=== PATIENT | female | born 1985 | race Caucasian/White ===

== ENCOUNTER 2017-08-29 21:06 | Day surgery (SDC) | payer OTHER ==
[2017-08-29 21:35] VITALS: BP 109/71; TEMP 98.8; BMI 31.8
--- NOTE | 2017-08-29 22:24 | PRG ---
DATE OF SERVICE: 08/29/2017 TIME OF EVALUATION: 2150 hours. TIME OF DICTATION: 2200 hours. LOCATION: Labor and Delivery in triage bed B. REASON FOR EVALUATION: Suspected threatened labor at 35 weeks and 2 days. This is a patient of Dr. Interiano. HISTORY OF PRESENT ILLNESS: In brief, this is a 31-year-old 5, para 2 with 2 prio r vaginal each at around 36 weeks. She states that she was seen last week by Dr. Interiano and ecked her cervix and found that she was [address] Interiano had mentioned to her the possibilit y of receiving steroids for lung maturity due to her history of labor at 36 weeks. Cata horan arrives here for irregular contractions and slight spotting. She denies recent trauma or leakage of fluid or cynthia bleeding. She has good movement. She denies any viral illnesses. REVIEW OF SYSTEMS: Complete review of systems was checked and is otherwise negative unless specifie d in the HPI. PAST MEDICAL HISTORY: Otherwise negative. ALLERGIES: None. PAST SURGICAL HISTORY: Significant only for tonsils and adenoids. OB HISTORY: As per HPI. PHYSICAL EXAMINATION: VITAL SIGNS: She is afebrile and normotensive. GENERAL: Clinically, she is in no acute distress. ABDOMEN: Soft and nontender and there are no palpable contractions. Size is consistent with dates. The cervix was checked by me and I found the cervix to be 2 cm dilated, about 50% effaced, -3 stat ion, posterior position. Baby is in a cephalic presentation. The bag of water is intact. There is no evidence of vaginal bleeding or ruptured membranes grossly on exam. NONSTRESS TEST: Nonstress test was ordered due to threatened labor. Nonstress test shows f etal heart tones in the 130s to 140s with moderate variability. There are no decelerations. There are no real contractions on the tocodynamometer. ASSESSMENT: This is a patient with threatened labor who is at 35 weeks and 2 days, with a h istory of deliveries at 36 weeks x2. PLAN: 1. Dr. Interiano aware of the patient's arrival. 2. Plan for Celestone to be given now with a repeat dose tomorrow as an outpatient. 3. We will give the Celestone now and discharge the patient home as there is no current evidence of labor. 4. She will return to labor and delivery tomorrow for her second Celestone injection.
[2017-08-29] MEDS ORDERED: Betamet Acet/Betamet Na Ph 30 MG/5 ML VIAL IM SCH (22:30)
== END 2017-08-29 22:52 | disposition home or self-care (01) ==
LOC: L&D/OP 21:06
PROVIDERS: ATTEND Obstetrics & Gynecology
DX: O47.03 False labor before 37 completed weeks of gestation, third trimester (principal); Z3A.36 36 weeks gestation of pregnancy; Z90.89 Acquired absence of other organs; Z79.899 Other long term (current) drug therapy
CPT/HCPCS: 59025; 96372; J0702

== ENCOUNTER 2017-08-30 19:31 | Day surgery (SDC) | payer OTHER ==
[2017-08-30] MEDS ORDERED: Betamet Acet/Betamet Na Ph 30 MG/5 ML VIAL IM SCH (20:00)
--- NOTE | 2017-08-30 21:37 | PRG ---
DATE OF SERVICE: 08/30/2017 PRIMARY RN SECURITY: Dr. Interiano. CHIEF COMPLAINT: Betamethasone shot in labor. HISTORY OF PRESENT ILLNESS: The patient is a 31-year-old G5, P2 female with a history of 2 deliveries here at 35 weeks and 3 days to get a second dose of betamethasone for threatened labor and delivery. The patient has no complaints today at this time. PHYSICAL EXAMINATION: VITAL SIGNS: Blood pressure is 121/62, heart rate of 80, respiratory rate of 18. GENERAL: She appears to be in no acute distress. heart tracing is performed for threatened labor. Baseline is noted to be in the 130s with moderate long-term variability, positive accelerations, duration is 25 minutes. Tocometer show s some irritability, not felt by the patient. ASSESSMENT AND PLAN: The patient is a 31-year-old G5, P2 female with history of 2 prior del iveries and threatened labor. She was here yesterday and evaluated and noted to be 2 cm dil ated. Decision was made by her primary OB who administered steroids and is here for her second shot s. The patient will be discharged to home once that is completed and we have. Fetus is reassuring by reactive NST. The patient has a followup appointment with Dr. Interiano on Friday.
== END 2017-08-30 20:07 | disposition home or self-care (01) ==
LOC: L&D/OP 19:31
PROVIDERS: ATTEND Obstetrics & Gynecology
DX: O60.03 Preterm labor without delivery, third trimester (principal); Z3A.35 35 weeks gestation of pregnancy
CPT/HCPCS: 59025; 96372; J0702

== ENCOUNTER 2017-09-03 18:02 | Day surgery (SDC) | payer OTHER ==
[2017-09-03 18:47] VITALS: BMI 30.7
[2017-09-03] MEDS ORDERED: Ondansetron HCl/PF 4 MG/2 ML Vial ONE (20:36)
[2017-09-03] MEDS ORDERED: Lactated Ringer's 1,000 ML IV SCH (21:00)
[2017-09-03] MEDS ORDERED: Lactated Ringer's 500 ML IV SCH (21:00)
[2017-09-03] MEDS ORDERED: Ondansetron HCl/PF 4 MG/2 ML Vial SLOW IVP SCH (21:00)
--- NOTE | 2017-09-04 04:20 | PRG ---
DATE OF SERVICE: 09/04/2017 PRIMARY NETWORKING SPECIALIST: Dr. Genaro Interiano CHIEF COMPLAINT: Abdominal pains. HISTORY OF PRESENT ILLNESS: The patient is a 31-year-old G5, P2 female with an intrauterine pregnan cy at 36 weeks and 0 days who is presenting to Labor and Delivery with increasing abdominal pains. The patient has a history of delivery x2, and a 36-week . She has been given anten atal steroids in the event of early delivery with this . The patient was last seen with ce rvical dilation of 2 cm, 50% effacement on 08/29/2017 approximately 6 days prior to this presentatio n. She reports that the pains have gotten closer together and more intense. She denies any leakage of fluid, reports some bloody show. She denies any recent illness, fever, fall, headache, chest pa in, shortness of breath, nausea, vomiting, diarrhea, constipation, any new skin rashes, hip problems , knee problems, urinary urgency. 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 PAST SURGICAL HISTORY: Negative. OBSTETRIC HISTORY: She has had 2 deliveries and 2 spontaneous miscarriages. SOCIAL HISTORY: Denies drug, alcohol or tobacco use. ALLERGIES: No known drug allergies. OB LABS: Blood type is A positive, antibody screen is negative. Hepatitis B surface antigen is neg ative. She is rubella immune, HIV nonreactive, RPR nonreactive. REVIEW OF SYSTEMS: Per HPI. PHYSICAL EXAMINATION: VITAL SIGNS: Blood pressure 108/56, heart rate of 71, respiratory rate 20, satting 96% on room air, temperature 98.3. GENERAL: She appears to be in no acute distress in between contractions. She does appear to have s ome pain with contractions. She is alert and oriented, and cooperative and pleasant to interact wit h. HEENT: Normocephalic, atraumatic. LUNGS: Clear to auscultation bilaterally. HEART: Regular rate and rhythm. ABDOMEN: Soft and gravid in between contractions. EXTREMITIES: Nontender, nonedematous. CERVICAL EXAM: On presentation is 3, 80%, -1 station, 4 hours later, the patient has been checked a nd is unchanged. During her stay, the patient has received 2 mg of Stadol IV hydration. heart tracing performed and for labor, baseline is noted to be in the 1-teens with mod erate long-term variability, positive 15 x 15 accelerations and no decelerations. Contractions that shows an irregular pattern with more regularity about every 4-6 minutes. ASSESSMENT AND PLAN: The patient is a 31-year-old G5, P2 female with an intrauterine at 3 6 weeks and history of delivery. The patient has been here for 4 hours without any cervical change. She has been discharged to home with 2 mg of IM Stadol and with instructions to go home an d rest. If contractions persist, become closer together, or if her water breaks patient is to retur n for reevaluation.
== END 2017-09-03 23:30 | disposition home or self-care (01) ==
LOC: L&D/OP 18:02
PROVIDERS: ATTEND Obstetrics & Gynecology
DX: O60.03 Preterm labor without delivery, third trimester (principal); O09.213 Supervision of pregnancy with history of pre-term labor, third trimester; O99.343 Other mental disorders complicating pregnancy, third trimester; O26.833 Pregnancy related renal disease, third trimester; F32.9 Major depressive disorder, single episode, unspecified; F41.9 Anxiety disorder, unspecified; N20.0 Calculus of kidney; Z3A.36 36 weeks gestation of pregnancy
CPT/HCPCS: 96360; 96361; 96372; 96375; J0595; J2405

== ENCOUNTER 2017-09-04 11:49 | Day surgery (SDC) | payer OTHER ==
[2017-09-04 12:26] VITALS: BP 112/66; TEMP 99; BMI 30.7
--- NOTE | 2017-09-05 07:26 | PRG ---
DATE OF SERVICE: 09/04/2017 CHIEF COMPLAINT: Contractions. HISTORY OF PRESENT ILLNESS: At the time of presentation, Ms. Miranda is a 31-year-old 5, p bertha 2 at 36 weeks 1 day who presents with complaint of contractions. She denies any vaginal bleedin g or leakage of fluid. The patient states she is not sure how many contractions she is having, but is having more than 6 per hour. The patient was seen last night for the pain and was discharged kody e at 3 cm dilation, 80% effacement. She states that the contractions that she is having now are not as intense as the contractions that she was having when she presented last night. The patient janell es any fever or chills. She denies any vomiting, constipation or diarrhea. REVIEW OF SYSTEMS: Limited review of systems per HPI history, please see Labor and Delivery admissi on record included by reference. PHYSICAL EXAMINATION: VITAL SIGNS: Blood pressure 122/66, pulse 82, respiratory rate 18, temperature 99.0. GENERAL: Nontoxic appearing female in no acute distress. OBSTETRIC: heart tracing is 125 reactive. Tocodynamometer shows irregular contractions. GENITOURINARY: Cervix was examined by the nurse and found to be 3.5 cm dilated, 80% effaced, high s tation, posterior in position and this was unchanged over 2 hours. ASSESSMENT AND PLAN: 1. A 36 weeks 1 day intrauterine with category 1 tracing. 2. contractions without labor. The patient's cervix did not demonstrate cervical change wi th 2 hours of observation. The patient does live close to hospital and does have transportation. S he was given the option to remain and be reexamined in another 2 hours or be discharged to home and chose the latter. The patient is instructed to return should her contractions increase in frequency or intensity.
== END 2017-09-04 15:00 | disposition home or self-care (01) ==
LOC: L&D/OP 11:49
PROVIDERS: ATTEND Obstetrics & Gynecology
DX: O47.03 False labor before 37 completed weeks of gestation, third trimester (principal); Z3A.36 36 weeks gestation of pregnancy; Z79.899 Other long term (current) drug therapy
CPT/HCPCS: 59025

== ENCOUNTER 2017-09-05 20:53 | Inpatient (IN) | payer OTHER ==
[~2017-09-05 20:53] MED LIST: Bupivacaine 0.25% 10 ML VIAL ONE
[2017-09-05] MEDS ORDERED: Lidocaine 1% (PF) 30 ML VIAL SC PRN (21:29)
[2017-09-05] MEDS ORDERED: Ondansetron HCl/PF 4 MG/2 ML Vial IVP PRN (21:29)
[2017-09-05] MEDS ORDERED: HYDROcodone/Acetaminophen 5/325 mg Tablet PO PRN ×2 (21:29)
[2017-09-05] MEDS ORDERED: Ibuprofen 800 MG TAB PO PRN (21:29)
[2017-09-05] MEDS ORDERED: LR / Pitocin 40 units/1000 ml 1,000 ML IV PRN (21:29)
[2017-09-05] MEDS ORDERED: Promethazine HCl 25 MG/ML VIAL IM PRN (21:29)
[2017-09-05] MEDS: Lactated Ringer's 1,000 ML IV SCH ×2 (21:50→23:22)
[2017-09-05 22:16] VITALS: BMI 30.7
[2017-09-05 22:16] LABS: Hematocrit 35.2 % (36.0-47.0); Red Blood Cell (RBC) Count 3.92 mill/uL (4.20-5.40); White Blood Cell (WBC) Count 10.3 thou/uL (4.8-10.8)
--- NOTE | 2017-09-05 22:26 | PRG ---
DATE OF SERVICE: 09/05/2017 FOLLOWUP PROGRESS NOTE In brief, Dr. Interiano has been notified of the patient's arrival. She has requested that I assume car e at this time as she will evaluate in the morning if she remains undelivered. Once again, the samira ent is at 5 cm, still in latent labor at 36-37 weeks. She has received steroids for lung matu rity. I have discussed with the patient that I will assume care overnight and questions answered. For now, we will not give Pitocin as she is still in the latent phase. We will continue to watch th e patient as an inpatient and give her Pitocin if required in the active phase of labor. There is n o evidence of membrane rupture.
[2017-09-06] MEDS ORDERED: Fentanyl 4 mcg/Marc 0.1% Cadd 100 ML ONE (03:21)
[2017-09-06] MEDS ORDERED: Promethazine HCl 25 MG/ML VIAL IM PRN (04:07)
[2017-09-06] MEDS ORDERED: Naloxone HCl 0.4 mg/ml Vial IVP PRN ×2 (04:07)
[2017-09-06] MEDS ORDERED: Eucerin (Mineral Oil/Petrolatum,White) 30 gm Jar TOP PRN (04:07)
[2017-09-06] MEDS ORDERED: ePHEDrine/0.9% NaCl/PF SYRINGE 50 mg/10 ml SLOW IVP PRN (04:07)
[2017-09-06] MEDS ORDERED: Acetaminophen 325 MG TAB PO PRN (04:07)
[2017-09-06] MEDS ORDERED: Ondansetron HCl/PF 4 MG/2 ML Vial IVP PRN (04:07)
[2017-09-06] MEDS ORDERED: diphenhydrAMINE HCl 50 MG/ML 1 ML VIAL IVP PRN (04:07)
[2017-09-06] MEDS ORDERED: Lactated Ringer's 500 ML IV PRN (04:07)
[2017-09-06] MEDS ORDERED: Communication Order-Pharmacy FS SCH (04:15)
[2017-09-06] MEDS ORDERED: Fentanyl 4mcg/Marcaine 0.1% Cassette 100 ML EPIDURAL SCH (04:15)
[2017-09-06] MEDS: Lactated Ringer's 1,000 ML IV SCH ×2 (04:24→21:30)
[2017-09-06] MEDS ORDERED: Varicella virus, LIVE 0.5 ML VIAL SC ONE (06:44)
[2017-09-06] MEDS ORDERED: Milk Of Magnesia 30 ML UDCUP PO PRN (06:44)
[2017-09-06] MEDS ORDERED: Lanolin Ointment 7 GM TUBE TOP PRN (06:44)
[2017-09-06] MEDS ORDERED: Bisacodyl 10 MG SUPP PR PRN (06:44)
[2017-09-06] MEDS ORDERED: Measles/Mumps/Rubella 10 MCG/0.5 ML VIAL SC ONE (06:44)
[2017-09-06] MEDS ORDERED: diphenhydrAMINE HCl 25 MG CAP PO PRN (06:44)
[2017-09-06] MEDS ORDERED: Benzocaine/Menthol 20-0.5% 60 ML CAN TOP PRN (06:44)
[2017-09-06] MEDS ORDERED: Adacel (T-DAP) 0.5 ML VIAL IM ONE (06:44)
[2017-09-06] MEDS ORDERED: Preparation H Ointment 28 GM TUBE PR PRN (06:44)
[2017-09-06] MEDS ORDERED: LR / Pitocin 40 units/1000 ml 1,000 ML IV SCH (06:45)
[2017-09-06 07:05] LABS: CO2 Tension (PaCO2) 55.1 mmHg (44.0-56.0)
--- NOTE | 2017-09-06 07:36 | DN ---
PRE-DELIVERY DIAGNOSIS: 36 to 37 week gestation in active labor. Steroids had been given p reviously. POST-PROCEDURE DIAGNOSES: 1. 36 to 37 week gestation in active labor. Steroids had been given previously. 2. Status post spontaneous vaginal . PRINCIPAL PROCEDURES: 1. Spontaneous vaginal delivery. 2. Spontaneous placental delivery. DELIVERING PHYSICIAN: Dr. Cochran. DELIVERY TIME: 633. Placenta delivered about 1 minute after. FINDINGS: 1. Vigorous male with Apgars 8 and 9. 2. Three-vessel cord intact placenta. 3. No lacerations noted. ESTIMATED BLOOD LOSS: 300 mL COMPLICATIONS: None. COUNTS: Correct. DISPOSITION: To recovery in good and stable condition. TECHNIQUE: The patient progressed to spontaneous vaginal delivery without complication. There was a nuchal cord x1, which was loose and reduced after head delivery. Mouth and nares was bulb suction ed after the baby was delivered. Delayed cord clamping occurred for about 30 seconds. Placenta fol lowed about 1 minute after delivery of the child. Cord gas was sent for prematurity. No complicati ons were noted with delivery and all counts were correct.
--- NOTE | 2017-09-06 08:07 | HP ---
DATE OF ADMISSION: 09/05/2017 LOCATION: Labor and Delivery in [facility]. This is a patient of Dr. Interiano. REASON FOR EVALUATION: Contractions. HISTORY OF PRESENT ILLNESS: In brief, the patient is a 31-year-old 5, para 2, who presents at 36 weeks and 2 days with a complaint of contractions. It is important to note that she was seen on 09/04/2017, yesterday, with Dr. Soto for complaint of contractions. At that time, her cervica l exam was found to be 3-4 cm dilated, about 80% effaced, high station and posterior cervical positi on which was unchanged over 2 hours. She was sent home on 09/04/2017 after that evaluation. Aixa baird now arrives with a complaint of persisting contractions. She had also been seen previously and wa s also discharged home cervical dilation of 3 cm, 80% effacement. Now, she returns with sarika nued contractions, but denies any other complications. She denies any abdominal trauma. REVIEW OF SYSTEMS: Complete review of systems was checked and is otherwise negative unless specifie d in the HPI. OB HISTORY: Significant for vaginal deliveries. There are no sections. ALLERGIES: None. OB HISTORY: Again vaginal deliveries in the past, current EDC is 10/01/2017. ALCOHOL, SMOKING OR DRUG USE: Negative. LABORATORY ASSESSMENT: Her blood type is A positive. She is GBS negative. Chlamydia test was negative. VDRL was nonreactive. Gonorrhea was negative. PHYSICAL EXAMINATION: Blood pressure is 108/67, heart rate of 103, respirations are 20, temperature is 98.3. On monitor, heart tones are in the 140s-150s with moderate variability and ac celerations. Tocodynamometer shows irregular contraction pattern with a lot of uterine irritability . heart tracing is reactive/class 1. ASSESSMENT: This is a patient of Dr. Interiano who is currently at 36 weeks and 2 days with early activ e labor. PLAN: 1. Admit to Labor and Delivery. 2. She is GBS negative. 3. Dr. Interiano to be notified. 4. Routine labor management. 5. Await spontaneous progress. 6. Notify neonatology of a active labor patient.
[2017-09-06] MEDS: Ibuprofen 800 MG TAB PO SCH ×3 (08:28→21:29)
[2017-09-06] MEDS: Ferrous Sulfate 325 MG TAB PO SCH ×2 (08:39→17:18)
[2017-09-06] MEDS: Docusate (Surfak) 240 MG CAP PO SCH ×2 (09:25→21:29)
[2017-09-06] MEDS: Prenatal Vitamin 1 TAB PO SCH (09:25)
[2017-09-06] MEDS: Acetaminophen/Codeine 30-300mg Tablet PO PRN ×2 (11:53→17:56)
[2017-09-07] MEDS: Acetaminophen/Codeine 30-300mg Tablet PO PRN ×2 (01:16→12:20)
[2017-09-07 05:26] LABS: Hematocrit 34.1 % (36.0-47.0); Red Blood Cell (RBC) Count 3.72 mill/uL (4.20-5.40); White Blood Cell (WBC) Count 12.2 thou/uL (4.8-10.8)
[2017-09-07] MEDS: Ibuprofen 800 MG TAB PO SCH ×3 (06:11→21:51)
[2017-09-07] MEDS: Docusate (Surfak) 240 MG CAP PO SCH ×2 (08:24→21:51)
[2017-09-07] MEDS: Prenatal Vitamin 1 TAB PO SCH (08:24)
[2017-09-07] MEDS: Lactated Ringer's 1,000 ML IV SCH ×3 (08:24→21:30)
[2017-09-07] MEDS: Ferrous Sulfate 325 MG TAB PO SCH ×2 (08:25→17:44)
--- NOTE | 2017-09-07 11:58 | PRG ---
DATE OF SERVICE: 09/07/2017 TIME OF EVALUATION: 10:49. PATIENT LOCATION: [address] [place] [address]. ROOM: The patient in room 318. DISCHARGE HOLD In brief, this is a patient who was discharged earlier by Dr. Khoury. She met discharge criteria. I was just notified by the appliance painter and refinisher that as a child is 36 weeks and the child will not be ready for discharge today. I have elected to hold the maternal discharge as the baby is not ready for discharge home. We may hold the discharge today and then resume discharge order tomorrow. JIMBO
[2017-09-08] MEDS: Acetaminophen/Codeine 30-300mg Tablet PO PRN ×2 (03:28→13:47)
[2017-09-08] MEDS: Lactated Ringer's 1,000 ML IV SCH ×2 (05:30→14:16)
[2017-09-08] MEDS: Ibuprofen 800 MG TAB PO SCH ×2 (05:58→13:46)
[2017-09-08 08:38] VITALS: BP 108/56; TEMP 98.7
[2017-09-08] MEDS: Docusate (Surfak) 240 MG CAP PO SCH (10:00)
[2017-09-08] MEDS: Prenatal Vitamin 1 TAB PO SCH (10:00)
[2017-09-08] MEDS: Ferrous Sulfate 325 MG TAB PO SCH ×2 (10:01→16:32)
--- NOTE | 2017-09-08 13:46 | PDOC.PP ---
Post Progress Note Post Day #: 3 -: doing well, plan for DC today w baby, no concerns PO intake tolerated: yes Flatus: yes Ambulation: yes Vital Signs (12 hours) Temp Pulse Resp BP 09/08/17 08:00 98.7 F 70 20 108/56 L Weight Weight 196 lb - Physical Examination General: NAD Abdominal: no distention Fundus firm & at: below umb Extremities: negative homans (B) Skin: no rash Neurological: no gross focal deficits Psychiatric: normal affect Result Diagrams: 09/07/17 04:08 Additional Labs: Post Labs Hep Bs Antigen Non-Reactive S/CO (NonReactive) 09/05/17 21:50 (1) delivery Status: Acute - Assessment/Plan PPD3 DC today.
== END 2017-09-08 18:20 | disposition home or self-care (01) | DRG 775 ==
LOC: L&D/OP 20:53 → L&D 21:41 → 3SE 09-06 09:46
PROVIDERS: ADMIT Obstetrics & Gynecology; ATTEND Obstetrics & Gynecology
PROC: 10E0XZZ Delivery of Products of Conception, External Approach (ICD-10-PCS; principal; 2017-09-06)
DX: O60.14X0 Preterm labor third trimester with preterm delivery third trimester, not applicable or unspecified (principal); O69.81X0 Labor and delivery complicated by cord around neck, without compression, not applicable or unspecified; Z3A.36 36 weeks gestation of pregnancy; Z37.0 Single live birth
CPT/HCPCS: 36415; 59025; 82805; 85027; 86780; 87340; 87389; J2001; J2405; S0020

== ENCOUNTER 2017-12-05 11:03 | Outpatient (CLI) | payer OTHER ==
[2017-12-05 12:07] LABS: Hemoglobin 14.1 g/dL (12.0-16.0); Mean Corpuscular HGB CONC 33.1 g/dL (32.0-36.0); Mean Corpuscular Hemoglobin 30.1 pg (27.0-31.0); Mean Platelet Volume 6.6 fL (7.4-10.4); Platelet Count 240 thou/uL (130-400); RBC Distribution Width 12.7 % (11.5-14.5); Red Blood Cell (RBC) Count 4.68 mill/uL (4.20-5.40); White Blood Cell (WBC) Count 5.4 thou/uL (4.8-10.8)
[2017-12-05 12:36] LABS: BHCG - Serum Negative (NEGATIVE); Pregs Control Background? CLEAR/WHITE (CLR/WHITE); Pregs Control Bar Appear? YES (CONTROL BAR)
== END 2017-12-05 11:04 | disposition home or self-care (01) ==
LOC: LABBT 11:03
PROVIDERS: ATTEND Obstetrics & Gynecology
DX: Z01.812 Encounter for preprocedural laboratory examination (principal); C56.9 Malignant neoplasm of unspecified ovary
CPT/HCPCS: 84703; 85027; 86850; 86900; 86901

== ENCOUNTER 2017-12-08 06:08 | Day surgery (SDC) | payer OTHER ==
[2017-12-05 11:33] VITALS: BMI 28.0
--- NOTE | 2017-12-08 00:59 | HP ---
PREOPERATIVE DIAGNOSES: 1. Family history of breast and ovarian cancer. 2. Satisfied parity. PROCEDURE TO BE PERFORMED: Laparoscopic risk reducing salpingectomy. HISTORY OF PRESENT ILLNESS: Ms. Josefina Miranda is a 32-year-old 4, para 3 with a family history significant for breast and ovarian cancer who has satisfied parity and desires risk reducing salpingectomy. PAST MEDICAL HISTORY: Asthma. CURRENT MEDICATIONS: ProAir HFA. OBSTETRICAL HISTORY: Three vaginal deliveries, one miscarriage. GYNECOLOGIC HISTORY: Regular periods. No history significant for dysmenorrhea or menorrhagia. No history of STD or PID. SOCIAL HISTORY: Negative for alcohol, tobacco or drug use. She is . FAMILY HISTORY: Significant for breast and ovarian cancers on her maternal side. PAST SURGICAL HISTORY: None. PHYSICAL EXAMINATION: VITAL SIGNS: Blood pressure 102/70, weight 186 pounds. GENERAL: No acute distress. Alert and oriented. CARDIOVASCULAR: Regular rate and rhythm. LUNGS: Clear to auscultation bilaterally. Nonlabored breathing. ABDOMEN: Soft, nontender. No hepatosplenomegaly. No palpable masses. GENITOURINARY: Normal external female genitalia. Normal vaginal mucosa. Normal size uterus, no adnexal masses or tenderness. EXTREMITIES: Normal range of motion. SKIN: No clubbing, cyanosis or edema. No rashes, no lesions. DIAGNOSTIC STUDIES: None. ASSESSMENT AND PLAN: Ms. Josefina Miranda is a 32-year-old G4, P3 and the family history significant for maternal family member with ovarian cancer and two maternal family members with breast cancer who are BRCA positive. At this time , the patient has been counseled for the option for BRCA screening and test declined. However, has requested a risk reducing salpingectomy, now that her parity has been satisfied. She understands the risks, benefits, and alternatives to the procedure. She understands risks which include, but not limited to bleeding, infection, damage to intraabdominal organs, the unintended side effect of permanent sterilization, a despite salpingectomy would likely be complicated as an ectopic that would require medical or surgical management. The patient understands that other conditions may be identified at the time of surgery that may require future surgical and medical management. The patient's questions have been answered to her satisfaction. She desires to proceed with a laparoscopic bilateral salpingectomy on 2017. JIMBO
[2017-12-08] MEDS ORDERED: CEFAZOLIN/Water 2 GM/20 ML SYRINGE ONE (06:18)
[2017-12-08] MEDS ORDERED: Fentanyl 100 MCG/2 ML VIAL ONE (06:21)
[2017-12-08] MEDS ORDERED: Midazolam HCl 2 mg/2 ml Vial ONE (06:41)
[2017-12-08] MEDS ORDERED: Scopolamine 1.5 mg/72 hour Patch ONE (06:42)
[2017-12-08] MEDS ORDERED: Bupivacaine HCl 0.5%/Epinephrine 1:200,000/PF 30 ml Vial ONE (06:52)
[2017-12-08] MEDS ORDERED: Promethazine HCl 25 MG/ML VIAL ONE (07:37)
--- NOTE | 2017-12-08 09:06 | OP ---
DATE OF PROCEDURE: 12/08/2017 PREOPERATIVE DIAGNOSES: Family history of breast and ovarian cancer, family history of BRCA mutation , satisfied parity. POSTOPERATIVE DIAGNOSES: Family history of breast and ovarian cancer, family history of BRCA mutatio n, satisfied parity. PROCEDURE PERFORMED: Laparoscopic bilateral salpingectomy. SURGEON: Genaro Interiano D.O. SILK SCREEN PRINTER: None. ESTIMATED BLOOD LOSS: Less than 5 mL COMPLICATIONS: None. URINE OUTPUT: During the case, 250 mL SILK SCREEN PRINTER: VENKATESH. LAPAROSCOPIC FINDINGS: 1. Normal appearing tubes and ovaries bilaterally, normal appearing uterus with the exception of an approximate 1-2 cm intramural to serosal fibroid noted near the left cornu through laparoscopic inspe ction. 2. Surgical sites hemostatic. 3. No pelvic adhesive disease. PROCEDURE DETAILS: The patient was taken back to the OR with IV fluids running. Once she was in the OR, general anesthesia was obtained and the patient was placed in low dorsal lithotomy position, the patient was then prepped and draped in normal fashion for gynecologic laparoscopy. Beginning at the vagina after a Anguiano catheter was placed using sterile technique. An operative speculum was placed into the vagina. The anterior lip of the cervix was visualized and grasped with a single tooth tenac ulum and a Hulka clamp was placed without difficulty. The single tooth tenaculum and speculum were t hen removed. Linda clamp was left in place for uterine manipulation during the case. Surgeon's sammy ves were changed and attention was turned to laparoscopic portion of the case beginning at the umbili cus, 0.25% local anesthesia was placed at the infraumbilical fold. An 11 mm skin incision was made a t the infraumbilical fold. A Veress needle was placed through this skin incision there with light wi thout difficulty. An 11 mm trocar was then placed through this incision without difficulty. The lap aroscope was then placed through this port and under direct visualization in similar fashion, the lef t and right lower quadrant 5 mm ports were placed without difficulty. The anatomy was inspected. Th e tubes were both followed out to the fimbriated end with a blunt grasper. Beginning on the patient' s right side, the fallopian tube was elevated at the fimbriated end away from the pelvic sidewall. T he LigaSure device was placed through the contralateral 5 mm port and the tube was completely transec rommel from the fimbriated end to cornu. Tube was then removed from the port intact. In similar fashio n, the contralateral fallopian tube was identified, elevated away from the pelvic anatomy and transec rommel completely was also removed under direct visualization. The surgical sites were both inspected a fter the salpingectomy was performed with no areas of bleeding noted. All instruments were removed f rom the abdomen and the gas was released from the abdomen. All 3 skin incisions were closed with Mon ocryl suture and dressed with Dermabond dressing. At the end of the case, the Hulka clamp was remove d. The cervix was inspected with a small area of bleeding noted from the anterior lip of the cervix, so the nitrate was applied for hemostasis at low pressure. The patient was then cleaned, dried, delma en out of lithotomy position and transferred to recovery room.
[2017-12-08] MEDS ORDERED: Ondansetron HCl/PF 4 MG/2 ML Vial ONE (17:06)
[2017-12-08] MEDS ORDERED: Ketorolac Tromethamine 30 MG/ML VIAL ONE (17:06)
[2017-12-08] MEDS ORDERED: Glycopyrrolate 0.2 MG/ML 5 ML SYRINGE ONE (17:06)
[2017-12-08] MEDS ORDERED: PHENYLEPHRINE-NS 100 MCG/ML 10 ML SYRINGE ONE (17:06)
[2017-12-08] MEDS ORDERED: Dexamethasone 20 MG/5 ML VIAL ONE (17:06)
[2017-12-08] MEDS ORDERED: ePHEDrine/0.9% NaCl/PF SYRINGE 50 mg/10 ml ONE (17:06)
[2017-12-08] MEDS ORDERED: PROPOFOL 200 MG/20 ML VIAL ONE (17:06)
[2017-12-08] MEDS ORDERED: Lidocaine 1% PF 5 ML VIAL ONE (17:06)
== END 2017-12-08 11:05 | disposition home or self-care (01) ==
LOC: SDC 06:08
PROVIDERS: ATTEND Obstetrics & Gynecology
PROC: 0UT74ZZ Resection of Bilateral Fallopian Tubes, Percutaneous Endoscopic Approach (ICD-10-PCS; principal; 2017-12-08)
DX: Z15.01 Genetic susceptibility to malignant neoplasm of breast (principal); J45.909 Unspecified asthma, uncomplicated; Z98.890 Other specified postprocedural states; Z80.3 Family history of malignant neoplasm of breast; Z80.41 Family history of malignant neoplasm of ovary
CPT/HCPCS: 88302; 88305; J0131; J0670; J1100; J1885; J2001; J2250; J2405; J2550; J2704; J3010

== ENCOUNTER 2020-04-01 11:01 | Emergency (ER) | payer SELFPAY ==
[2020-04-01 11:35] LABS: #Eosinphils 0.4 thou/uL (0.0-0.7); #Lymphocytes 1.9 thou/uL (1.20-3.40); #Monocytes 0.3 thou/uL (0.11-0.59); #Neutrophils 2.8 thou/uL (1.40-6.50); %Basophils 0.8 % (0.0-1.0); %Eosinophils 7.4 % (0.0-10.0); %Lymphocytes 34.5 % (21.0-51.0); %Monocytes 5.8 % (0.0-10.0); %Neutrophils 51.6 % (42.0-75.0); Hemoglobin 15.1 g/dL (12.0-16.0); Mean Corpuscular HGB CONC 33.1 g/dL (32.0-36.0); Mean Corpuscular Hemoglobin 31.2 pg (27.0-31.0); Mean Corpuscular Volume 94.3 fL (78.0-98.0); Mean Platelet Volume 6.4 fL (7.4-10.4); Platelet Count 309 thou/uL (130-400); RBC Distribution Width 11.1 % (11.5-14.5); Red Blood Cell (RBC) Count 4.84 mill/uL (4.20-5.40); White Blood Cell (WBC) Count 5.5 thou/uL (4.8-10.8)
[2020-04-01 11:57] LABS: Bilirubin Negative (Negative); Blood, Urine Negative (Negative); Glucose, Urine (Dipstick) Normal (Negative); Leukocyte 25 Leu/uL (Negative); Nitrite Negative (Negative); Protein, Urine (Dipstick) 10 mg/dL (Neg-Trace); RBC/HPF 0-3 HPF (0-3); Urobilinogen Normal mg/dL (Less than 2)
[2020-04-01 11:59] LABS: Bacteria/HPF 1+ HPF (None Seen); Clarity Clear (Clear)
[2020-04-01 11:59] LABS: ALT (SGPT) 42 U/L (8-55); AST (SGOT) 36 U/L (5-34); Albumin 4.7 g/dL (3.5-5.0); Alkaline Phosphatase 134 U/L (40-110); Anion Gap 13 mmol/L (10-20); BUN (Urea Nitrogen) 11 mg/dL (7.0-18.7); Bilirubin, Total 0.6 mg/dL (0.2-1.2); Calc. Creatinine Clearance 0 mL/min (70-130); Carbon Dioxide 25 mmol/L (22-29); Chloride 104 mmol/L (98-107); Estimated GFR-MDRD 88; Glucose 106 mg/dL (70-105); Potassium 4.5 mmol/L (3.5-5.1); Protein, Total 7.7 g/dL (6.0-8.3); Sodium 137 mmol/L (136-145)
[2020-04-01 12:00] LABS: Pregnancy Test - Urine (BHCG) Negative (Negative); Pregu Control Background? CLEAR/WHITE (CLR/WHITE); Pregu Control Bar Appear? YES (CONTROL BAR); Specific Gravity 1.022 (1.002-1.036)
[2020-04-01] MEDS ORDERED: Fentanyl 100 MCG/2 ML VIAL ONE (12:08)
[2020-04-01] MEDS ORDERED: Ondansetron PF 4 MG/2 ML Vial ONE (12:08)
--- NOTE | 2020-04-01 13:09 | CT ---
CT ABDOMEN AND PELVIS WITHOUT CONTRAST STONE PROTOCOL: 04/01/20 HISTORY: Abdominal pain. COMPARISON: CT 03/23/20. FINDINGS: The lung bases are clear. No pericardial effusion. There is retained contrast within the appendix whi ch is not dilated. Trace free fluid in the pelvis. No nephroureterolithiasis or hydroureteronephrosis . No secondary evidence for recently passed stone. The ovaries appear to be enlarged. No acute osseous abnormality. IMPRESSION: 1. Normal appendix. 2. No hydroureteronephrosis or nephroureterolithiasis. No secondary evidence of recently passed stone. 3. Enlarged ovaries bilaterally. Nonemergent pelvic ultrasound on outpatient basis can be perfor med to evaluate for PCOS. POS: HOME
--- NOTE | 2020-04-01 13:10 | ULT ---
ULTRASOUND PELVIC ULTRASOUND TRANSVAGINAL DOPPLER DUPLEX: DATE: 04/01/2020 HISTORY: 34-year-old female with pelvic pain TECHNIQUE: Transabdominal transducer and endovaginal transducer used to visualize intrapelvic contents with childers scale, color-flow, and spectral analysis. FINDINGS: Uterus: 10 x 5.5 x 6 cm. Endometrial stripe: 1.5 cm (15 mm) No moderate sized or large uterine leiomyoma identified. Right ovary: 4.5 x 2.5 x 2.5 cm. There are a few anechoic prominent follicles/cysts in the right ovary. The largest is 2.5 x 1.5 x 1.5 cm. Blood flow demonstrated by Doppler in the right ovarian parenchyma. Left ovary: 6 x 4 x 3.5 cm. A 1.5 x 1.5 x 1.5 cm left ovarian cyst with low level internal echoes suggestive of blood or other de bris. Blood flow demonstrated in the left ovary by Doppler, both arterial and venous flow. Small amount of free fluid in the cul-de-sac. IMPRESSION: 1. Enlarged left ovary: 6 x 4 x 3.5 cm. 2. Hemorrhagic small left ovarian cyst: 1.5 cm. 3. Contralateral 2.5 cm right ovarian simple cyst.
[2020-04-01] MEDS ORDERED: Morphine 2 MG/ML SYRINGE ONE (15:04)
[2020-04-04 20:27] LABS: Chlamydia by PCR Not Detected (NotDetected); GC by PCR Not Detected (NotDetected)
== END 2020-04-01 15:57 | disposition home or self-care (01) ==
LOC: ERS 11:01
DX: N83.202 Unspecified ovarian cyst, left side (principal); J45.909 Unspecified asthma, uncomplicated
CPT/HCPCS: 74176; 76856; 80053; 81003; 81015; 81025; 85025; 87480; 87491; 87510; 87591; 87660; 96374; 96375; J2270; J2405; J3010

== ENCOUNTER 2024-08-21 18:11 | Emergency (ER) | payer OTHER ==
[2024-08-21] MEDS ORDERED: Orphenadrine Citrate 60 MG/2 ML VIAL ONE (19:27)
[2024-08-21] MEDS ORDERED: Ketorolac Tromethamine 30 MG (1 mL) VIAL ONE (19:27)
== END 2024-08-21 19:40 | disposition home or self-care (01) ==
LOC: ERS 18:11
DX: S39.012A Strain of muscle, fascia and tendon of lower back, initial encounter (principal); J45.909 Unspecified asthma, uncomplicated; X50.0XXA Overexertion from strenuous movement or load, initial encounter; Y93.89 Activity, other specified; Z79.51 Long term (current) use of inhaled steroids
CPT/HCPCS: 72100; 96372; 99283; J1885; J2360